=== PATIENT | female | born 1970 | race Two or more races ===

== ENCOUNTER 2021-03-18 11:30 | Outpatient (CLI) | payer OTHER | END 2021-03-18 12:00 | disposition home or self-care (01) | LOC: MAMO-SONO 11:30 | PROVIDERS: ATTEND Specialist | DX: N64.59 Other signs and symptoms in breast (principal); Z12.31 Encounter for screening mammogram for malignant neoplasm of breast; Z87.898 Personal history of other specified conditions ==

== ENCOUNTER 2021-04-17 08:55 | Outpatient (CLI) | payer OTHER | END 2021-04-17 09:05 | disposition home or self-care (01) | LOC: TOM 08:55 | PROVIDERS: ATTEND Specialist | DX: R19.00 Intra-abdominal and pelvic swelling, mass and lump, unspecified site (principal); D25.9 Leiomyoma of uterus, unspecified ==

== ENCOUNTER 2021-04-24 08:23 | Outpatient (CLI) | payer OTHER | END 2021-04-24 08:25 | disposition home or self-care (01) | LOC: NUCLEAR 08:23 | PROVIDERS: ATTEND Internal Medicine Cardiovascular Disease | DX: R07.89 Other chest pain (principal) ==

== ENCOUNTER 2023-02-16 08:55 | Outpatient (CLI) | payer OTHER | END 2023-02-16 09:08 | disposition home or self-care (01) | LOC: RAD 08:55 | PROVIDERS: ATTEND Internal Medicine Cardiovascular Disease | DX: M12.9 Arthropathy, unspecified (principal) ==

== ENCOUNTER 2023-07-07 09:57 | Outpatient (CLI) | payer OTHER | END 2023-07-07 10:04 | disposition home or self-care (01) | LOC: MAMO-SONO 09:57 | PROVIDERS: ATTEND Specialist | DX: N60.11 Diffuse cystic mastopathy of right breast (principal); N60.12 Diffuse cystic mastopathy of left breast; Z12.31 Encounter for screening mammogram for malignant neoplasm of breast ==

== ENCOUNTER 2023-11-16 08:22 | Outpatient (CLI) | payer OTHER | END 2023-11-16 08:32 | disposition home or self-care (01) | LOC: SONOGRAMA 08:22 | PROVIDERS: ATTEND Specialist | DX: E05.90 Thyrotoxicosis, unspecified without thyrotoxic crisis or storm (principal) ==

== ENCOUNTER 2024-07-10 07:23 | Outpatient (CLI) | payer OTHER | END 2024-07-10 07:38 | disposition home or self-care (01) | LOC: MAMO-SONO 07:23 | PROVIDERS: ATTEND Specialist | DX: N60.11 Diffuse cystic mastopathy of right breast (principal); N60.12 Diffuse cystic mastopathy of left breast ==

== ENCOUNTER 2024-09-14 07:43 | Outpatient (CLI) | payer OTHER | END 2024-09-14 07:56 | disposition home or self-care (01) | LOC: SONOGRAMA 07:43 | PROVIDERS: ATTEND Specialist | DX: D25.9 Leiomyoma of uterus, unspecified (principal) ==

== ENCOUNTER 2025-07-10 07:48 | Outpatient (CLI) | payer OTHER | END 2025-07-10 08:00 | disposition home or self-care (01) | LOC: MAMO-SONO 07:48 | PROVIDERS: ATTEND Specialist | DX: N60.11 Diffuse cystic mastopathy of right breast (principal); N60.12 Diffuse cystic mastopathy of left breast; D25.9 Leiomyoma of uterus, unspecified ==